=== PATIENT | male | born 1980 | race Two or more races ===

== ENCOUNTER 2016-08-06 16:20 | Inpatient (IN) | payer SELFPAY ==
[~2016-08-06] VITALS: Ht 185.4 cm; Wt 95.8 kg
[2016-08-06 16:25] VITALS: BP 201/112; PULSE 88; RESP 22; TEMP 100.1; O2SAT 97
[2016-08-06 16:30] VITALS: O2SAT 97
[2016-08-06] MEDS ORDERED: HYDROmorphone HCL PF 2 MG/ML VIAL IVS ONE (16:30)
[2016-08-06] MEDS ORDERED: SODIUM CHLOR 0.9% 1000 ML INJ 1,000 ML IV ONE (16:30)
--- NOTE | 2016-08-06 16:49 | PD ---
HPI Chief Complaint: Injury Time Seen by Provider: 16:29 Travel History International Travel<30 days: No Contact w/Intl Traveler<30days: No Traveled to known affect area: No History of Present Illness HPI Patient is a 35 year old male who presents to ER with complaints of right knee pain. Patient reports that one hour prior to arrival to ER, patient was trying to jump onto a truck with his right leg, reports that he missed the truck and his right knee hit the truck and landed onto the ground. Patient reports severe pain to his right knee. Patient's last meal was at 130pm today. Patient has hx of surgeries to the knee in the past, reports that he had the surgery in [facility] 8 years ago. Patient currently not taking any medications. PFSH Past Medical History Neurologic: Yes (Vertigo) Tetanus Vaccination: > 5 Years Influenza Vaccination: No Social History Alcohol Use: No Tobacco Use: No Substance Use: No Allergies-Medications (Allergen,Severity, Reaction): Coded Allergies: Morphine (Verified Allergy, Severe, Itching, 08/06/16) Reported Meds & Prescriptions Reported Meds & Active Scripts Active No Active Prescriptions or Reported Medications Review of Systems General / Constitutional: No: Fever Eyes: No: Visual changes HENT: No: Headaches Cardiovascular: No: Chest Pain or Discomfort Respiratory: No: Shortness of Breath Gastrointestinal: No: Abdominal Pain Genitourinary: No: Dysuria Musculoskeletal: Positive: Limited ROM (right knee pain), Pain (right knee pain ) Skin: No Rash Neurologic: No: Weakness Psychiatric: No: Depression Endocrine: No: Polydipsia Hematologic/Lymphatic: No: Easy Bruising Physical Exam Narrative GENERAL: Patient in severe distress, patient with pain to his right knee SKIN: Focused skin assessment warm/dry. HEAD: Atraumatic. Normocephalic. EYES: Pupils equal and round. No scleral icterus. No injection or drainage. ENT: No nasal bleeding or discharge. Mucous membranes pink and moist. NECK: Trachea midline. No JVD. CARDIOVASCULAR: Regular rate and rhythm. No murmur appreciated. RESPIRATORY: No accessory muscle use. Clear to auscultation. Breath sounds equal bilaterally. GASTROINTESTINAL: Abdomen soft, non-tender, nondistended. Hepatic and splenic margins not palpable. MUSCULOSKELETAL: Patient with obvious deformity to right knee, patient with swelling and edema, no signs of open fracture. Patient with no pain to right hip or right ankle. Pulses intact. Left lower extremity: normal exam. NEUROLOGICAL: Awake and alert. No obvious cranial nerve deficits. Motor grossly within normal limits. Normal speech. PSYCHIATRIC: Appropriate mood and affect; insight and judgment normal. Data Data Last Documented VS Vital Signs Date Time Temp Pulse Resp B/P Pulse Ox O2 Delivery O2 Flow Rate FiO2 08/06/16 18:15 96 18 169/84 98 Room Air 08/06/16 16:25 100.1 Orders Iv Access Insert/Monitor (08/06/16 16:29) Ecg Monitoring (08/06/16 16:29) Oximetry (08/06/16 16:29) Sodium Chlor 0.9% 1000 Ml Inj (Ns 1000 M (08/06/16 16:30) Hydromorphone Pf Inj (Dilaudid Pf Inj) (08/06/16 16:30) Femur (Ap & Lat/2vws) (08/06/16 ) Tibia/Fibula (Ap/Lat) (08/06/16 ) Knee, Ltd (1 Or 2vws) (08/06/16 ) Propofol 200 Mg/20 Ml Inj (Diprivan 200 (08/06/16 17:00) Basic Metabolic Panel (Bmp) (08/06/16 16:54) Complete Blood Count With Diff (08/06/16 16:54) Prothrombin Time / Inr (Pt) (08/06/16 16:54) Act Partial Throm Time (Ptt) (08/06/16 16:54) Knee, Ltd (1 Or 2vws) (08/06/16 ) Morphine Inj (Morphine Inj) (08/06/16 17:30) Chest, Single Ap (08/06/16 17:25) Ketorolac Inj (Toradol Inj) (08/06/16 17:30) Pelvis, Ap Only (Routine) (08/06/16 ) Splint Or Brace Apply/Monitor (08/06/16 17:30) Diphenhydramine Inj (Benadryl Inj) (08/06/16 18:15) Ondansetron Inj (Zofran Inj) (08/06/16 18:15) Admit Order (Ed Use Only) (08/06/16 18:20) Consult Orthopedic (08/06/16 ) Labs Laboratory Tests Test 08/06/16 16:20 White Blood Count 14.8 TH/MM3 Red Blood Count 5.37 MIL/MM3 Hemoglobin 14.7 GM/DL Hematocrit 44.1 % Mean Corpuscular Volume 82.2 FL Mean Corpuscular Hemoglobin 27.4 PG Mean Corpuscular Hemoglobin 33.3 % Concent Red Cell Distribution Width 12.5 % Platelet Count 316 TH/MM3 Mean Platelet Volume 9.2 FL Neutrophils (%) (Auto) 60.3 % Lymphocytes (%) (Auto) 29.4 % Monocytes (%) (Auto) 6.9 % Eosinophils (%) (Auto) 2.5 % Basophils (%) (Auto) 0.9 % Neutrophils # (Auto) 9.0 TH/MM3 Lymphocytes # (Auto) 4.3 TH/MM3 Monocytes # (Auto) 1.0 TH/MM3 Eosinophils # (Auto) 0.4 TH/MM3 Basophils # (Auto) 0.1 TH/MM3 CBC Comment DIFF FINAL Differential Comment Prothrombin Time 10.7 SEC Prothromb Time International 1.0 RATIO Ratio Activated Partial 22.9 SEC Thromboplast Time Sodium Level 142 MEQ/L Potassium Level 4.0 MEQ/L Chloride Level 106 MEQ/L Carbon Dioxide Level 23.9 MEQ/L Anion Gap 12 MEQ/L Blood Urea Nitrogen 14 MG/DL Creatinine 1.70 MG/DL Estimat Glomerular Filtration 46 ML/MIN Rate Random Glucose 111 MG/DL Calcium Level 8.8 MG/DL [facility] Medical Decision Making Medical Screen Exam Complete: Yes Emergency Medical Condition: Yes Interpretation(s) Vital Signs Date Time Temp Pulse Resp B/P Pulse Ox O2 Delivery O2 Flow Rate FiO2 08/06/16 17:05 20 08/06/16 16:30 97 Room Air 08/06/16 16:25 100.1 88 22 201/112 97 Differential Diagnosis right knee fracture, right tib/fib fx, patella fx/dislocation, femur fx Narrative Course Patient is a 35-year-old male presents to emergency room Procedures Procedure Narrative Right sided Distal Femur Fx Reduction: Verbal as well as written consent obtained using auto repair technicianslag expander line After patient was sedated, Manual traction with countertraction was used to restore the appropriate length and rotation of the femur. Patient did have pulses before and after procedure. Post reduction films ordered - patient with good reduction. Physician Communication Physician Communication case reviewed with dr. vasquez who accepts pt to service case reviewed with dr. velez who will see patient in consult Diagnosis Primary Impression: Femoral distal fracture Qualified Code: S72.491A - Other closed fracture of distal end of right femur , initial encounter Admitting Information Admitting Physician Requests: Admit Scripts No Active Prescriptions or Reported Meds Desire Da Silva DO Aug 06, 2016 16:49
[2016-08-06] MEDS ORDERED: PROPOFOL 200 MG/20 ML AMP IV ONE (17:00)
--- NOTE | 2016-08-06 17:04 | RADHPO ---
EXAM DATE/TIME: 08/06/2016 16:31 [facility] COMPARISON: No previous studies available for comparison. INDICATIONS : Right knee pain after fall. MEDICAL HISTORY : None. SURGICAL HISTORY : None. ENCOUNTER: Initial ACUITY: 1 day PAIN SCORE: 10/10 LOCATION: Right proximal knee FINDINGS: Limited AP and lateral views of the right knee were obtained and demonstrate a mildly comminuted frac ture deformity of the distal femur as above the level of the condyles. The distal fracture fragment i s displaced one shaft width posteriorly with mild overriding. There is soft tissue swelling. There ar e remote post surgical changes in the proximal tibia. Patella is intact. There is evidence of a joint effusion. CONCLUSION: Distal femur fracture. Terence Laura MD on August 06, 2016 at 16:59 Board Certified Radiologist. This report was verified electronically.
[2016-08-06 17:06] LABS: BASOPHIL # 0.1 TH/MM3 (0-0.2); BASOPHIL % 0.9 % (0.0-2.0); EOSINOPHIL # 0.4 TH/MM3 (0-0.4); EOSINOPHIL % 2.5 % (0.0-4.0); HEMATOCRIT 44.1 % (39.0-51.0); HEMO FLAGS DIFF FINAL; LYMPH % 29.4 % (9.0-44.0); LYMPHOCYTE # 4.3 TH/MM3 (1.0-4.8); MEAN CELL VOLUME 82.2 FL (80.0-100.0); MEAN CORPUSCULAR HEMOGLOBIN 27.4 PG (27.0-34.0); MEAN CORPUSCULAR HGB CONC 33.3 % (32.0-36.0); MONO % 6.9 % (0.0-8.0); NEUT % 60.3 % (16.0-70.0); PLATELET COUNT 316 TH/MM3 (150-450); RED BLOOD COUNT 5.37 MIL/MM3 (4.50-5.90); RED CELL DISTRIBUTION WIDTH 12.5 % (11.6-17.2); WHITE BLOOD COUNT 14.8 TH/MM3 (4.0-11.0)
[2016-08-06 17:17] LABS: BICARBONATE 23.9 MEQ/L (21.0-32.0)
[2016-08-06 17:18] LABS: APTT (PATIENT) 22.9 SEC (24.3-30.1); PROTHROMBIN TIME - PATIENT 10.7 SEC (9.8-11.6)
[2016-08-06 17:30] VITALS: O2SAT 99
[2016-08-06] MEDS ORDERED: MORPHINE SULFATE 4 MG/ML INJ IV PUSH ONE (17:30)
[2016-08-06] MEDS ORDERED: KETOROLAC TROMETHAMINE 30 MG/ML (IVP) VIAL IVP ONE (17:30)
--- NOTE | 2016-08-06 18:01 | PD ---
Data Data Last Documented VS Vital Signs Date Time Temp Pulse Resp B/P Pulse Ox O2 Delivery O2 Flow Rate FiO2 08/06/16 17:05 20 08/06/16 16:30 97 Room Air 08/06/16 16:25 100.1 88 201/112 Orders Iv Access Insert/Monitor (08/06/16 16:29) Ecg Monitoring (08/06/16 16:29) Oximetry (08/06/16 16:29) Sodium Chlor 0.9% 1000 Ml Inj (Ns 1000 M (08/06/16 16:30) Hydromorphone Pf Inj (Dilaudid Pf Inj) (08/06/16 16:30) Femur (Ap & Lat/2vws) (08/06/16 ) Tibia/Fibula (Ap/Lat) (08/06/16 ) Knee, Ltd (1 Or 2vws) (08/06/16 ) Propofol 200 Mg/20 Ml Inj (Diprivan 200 (08/06/16 17:00) Basic Metabolic Panel (Bmp) (08/06/16 16:54) Complete Blood Count With Diff (08/06/16 16:54) Prothrombin Time / Inr (Pt) (08/06/16 16:54) Act Partial Throm Time (Ptt) (08/06/16 16:54) Knee, Ltd (1 Or 2vws) (08/06/16 ) Morphine Inj (Morphine Inj) (08/06/16 17:30) Chest, Single Ap (08/06/16 17:25) Ketorolac Inj (Toradol Inj) (08/06/16 17:30) Pelvis, Ap Only (Routine) (08/06/16 ) Splint Or Brace Apply/Monitor (08/06/16 17:30) Labs Laboratory Tests Test 08/06/16 16:20 White Blood Count 14.8 TH/MM3 Red Blood Count 5.37 MIL/MM3 Hemoglobin 14.7 GM/DL Hematocrit 44.1 % Mean Corpuscular Volume 82.2 FL Mean Corpuscular Hemoglobin 27.4 PG Mean Corpuscular Hemoglobin 33.3 % Concent Red Cell Distribution Width 12.5 % Platelet Count 316 TH/MM3 Mean Platelet Volume 9.2 FL Neutrophils (%) (Auto) 60.3 % Lymphocytes (%) (Auto) 29.4 % Monocytes (%) (Auto) 6.9 % Eosinophils (%) (Auto) 2.5 % Basophils (%) (Auto) 0.9 % Neutrophils # (Auto) 9.0 TH/MM3 Lymphocytes # (Auto) 4.3 TH/MM3 Monocytes # (Auto) 1.0 TH/MM3 Eosinophils # (Auto) 0.4 TH/MM3 Basophils # (Auto) 0.1 TH/MM3 CBC Comment DIFF FINAL Differential Comment Prothrombin Time 10.7 SEC Prothromb Time International 1.0 RATIO Ratio Activated Partial 22.9 SEC Thromboplast Time Sodium Level 142 MEQ/L Potassium Level 4.0 MEQ/L Chloride Level 106 MEQ/L Carbon Dioxide Level 23.9 MEQ/L Anion Gap 12 MEQ/L Blood Urea Nitrogen 14 MG/DL Creatinine 1.70 MG/DL Estimat Glomerular Filtration 46 ML/MIN Rate Random Glucose 111 MG/DL Calcium Level 8.8 MG/DL MDM Supervised Visit with JULEE: No Narrative Course I was asked by Dr. Da Silva to perform procedural sedation for the patient for reduction of a right distal femur fracture. The patient underwent informed consent by both me and Dr. Da Silva through color drum worker service prior to signing informed consent. All risks benefits competitions and alternatives including hypertension apnea need for intubation were discussed with the patient. He did agree to the risks and signed a written consent. Patient has Mallampati 2 and ASA 1. Procedures Procedure Narrative After the risks and benefits were discussed the following procedure was performed: MODERATE SEDATION: The patient was placed on a ekg monitor and pulse oximetry. An ambu bag and suction was immediately available at bedside. The patient was monitored by the nurse and respiratory therapy. Oxygen saturation, heart rate and blood pressure were monitored as well as waveform capnography. Procedural sedation was acheived using 120 mg of propofol given in two separate boluses and 80 mg followed by 40 mg. 2 additional boluses of 40 mg each were given while the patient The patient was observed until awake and alert. Procedural Sedation time in attendance was 20 minutes. Total propofol given was 200 mg. Patient suffered no untoward event no apnea and no hypotension. He was alert and awake and communicating with me through my broken Arabic. Diagnosis Primary Impression: Femur fracture, right Scripts No Active Prescriptions or Reported Meds Scottie León MD Aug 06, 2016 18:01
--- NOTE | 2016-08-06 18:03 | RADHPO ---
EXAM DATE/TIME: 08/06/2016 17:31 [facility] COMPARISON: No previous studies available for comparison. INDICATIONS : Short of breath after fall. MEDICAL HISTORY : None. SURGICAL HISTORY : None. ENCOUNTER: Initial ACUITY: 1 day PAIN SCORE: 0/10 LOCATION: Bilateral chest FINDINGS: A single view of the chest demonstrates the lungs to be symmetrically aerated without evidence of mas s, infiltrate or effusion. Study is Midinspiratory with crowding of the lung vasculature. There are o verlying electrocardiogram leads. The cardiomediastinal contours are unremarkable. Osseous structure s are intact. CONCLUSION: Midinspiratory study with no acute cardiopulmonary disease. Terence Laura MD on August 06, 2016 at 18:00 Board Certified Radiologist. This report was verified electronically.
--- NOTE | 2016-08-06 18:13 | RADHPO ---
EXAM DATE/TIME: 08/06/2016 17:36 [facility] COMPARISON: No previous studies available for comparison. INDICATIONS : Pelvic pain post fall. MEDICAL HISTORY : None. SURGICAL HISTORY : None. ENCOUNTER: Initial ACUITY: 1 day PAIN SCORE: 5/10 LOCATION: Bilateral pelvis FINDINGS: A single frontal view of the pelvis demonstrates no evidence of fracture. The bony pelvic ring is in tact. Bony mineralization is normal. The soft tissues are intact. CONCLUSION: Intact pelvis. Rupert Triplett MD on August 06, 2016 at 18:11 Board Certified Radiologist. This report was verified electronically.
--- NOTE | 2016-08-06 18:13 | RADHPO ---
EXAM DATE/TIME: 08/06/2016 17:36 [facility] COMPARISON: KNEE RIGHT LTD (1 OR 2 VWS), August 06, 2016, 16:31. INDICATIONS : Right knee, post reduction. MEDICAL HISTORY : None. SURGICAL HISTORY : Prior surgery to right tibia. ENCOUNTER: Subsequent ACUITY: 1 day PAIN SCORE: 10/10 LOCATION: Right proximal knee FINDINGS: Comminuted fracture of the distal right femur again noted status post closed reduction. Alignment is near-anatomic that the fracture is extremely comminuted and mainly transverse to the metaphysis. Ther e is an oblique sagittal component that extends into the roof of the notch, bisecting the condyles. Old fracture of the lateral tibial plateau with marked chronic appearing subchondral irregularity aga in noted. CONCLUSION: Acute distal femur fracture as above, near-anatomic alignment but extremely comminuted. There is evid ence of intra-articular involvement. Proximal tibia findings are chronic. Rupert Triplett MD on August 06, 2016 at 18:09 Board Certified Radiologist. This report was verified electronically.
[2016-08-06 18:15] VITALS: BP 169/84; PULSE 96; RESP 18; O2SAT 98
[2016-08-06] MEDS ORDERED: diphenhydrAMINE HCL 50 MG/ML VIAL IV PUSH ONE (18:15)
[2016-08-06] MEDS ORDERED: ONDANSETRON HCL 4 MG/2 ML VIAL IV PUSH ONE (18:15)
--- NOTE | 2016-08-06 18:20 | RADHPO ---
EXAM DATE/TIME: 08/06/2016 17:37 [facility] COMPARISON: KNEE RIGHT LTD (1 OR 2 VWS), August 06, 2016, 17:36. INDICATIONS : Right femur pain post fall. MEDICAL HISTORY : None. SURGICAL HISTORY : Prior surgery to right tibia. ENCOUNTER: Initial ACUITY: 1 day PAIN SCORE: 10/10 LOCATION: Right distal femur FINDINGS: There is a comminuted fracture of the distal right femur and please refer to the right knee x-ray rep ort. The rest of the right femur is intact and has normal morphology. CONCLUSION: Comminuted intra-articular fracture of the distal right femur in near-anatomic alignment. Please refe r to the right knee x-ray report. The rest of the right femur is normal. Rupert Triplett MD on August 06, 2016 at 18:18 Board Certified Radiologist. This report was verified electronically.
--- NOTE | 2016-08-06 18:23 | RADHPO ---
EXAM DATE/TIME: 08/06/2016 17:42 [facility] COMPARISON: No previous studies available for comparison. INDICATIONS : Right lower leg pain post fall. MEDICAL HISTORY : None. SURGICAL HISTORY : None. ENCOUNTER: Initial ACUITY: 1 day PAIN SCORE: 10/10 LOCATION: Right proximal lower leg FINDINGS: No acute fracture is seen in the right tibia or fibula. Tibia has been pulled fracture of the lateral tibial plateau status post screw fixation. There is considerable irregularity of the subchondral morgan te at the knee. CONCLUSION: No acute fracture of the right leg. Deformity of the lateral tibial plateau does not appear acute. Rupert Triplett MD on August 06, 2016 at 18:20 Board Certified Radiologist. This report was verified electronically.
[2016-08-06] MEDS ORDERED: MAGNESIUM HYDROXIDE SUSP 30 ML CUP PO PRN (18:30)
[2016-08-06] MEDS ORDERED: HYDROmorphone HCL PF 1 MG/ML VIAL IV PUSH PRN (18:30)
[2016-08-06] MEDS ORDERED: NALOXONE HCL 0.4 MG/ML AMP IV PRN (18:30)
[2016-08-06] MEDS ORDERED: SODIUM CHLORIDE 0.9% FLUSH 10 ML FLUSH IV FLUSH PRN (18:30)
[2016-08-06] MEDS ORDERED: ACETAMINOPHEN 325 MG TAB PO PRN (18:30)
[2016-08-06 19:00] VITALS: BP 171/77; PULSE 102; RESP 18; O2SAT 97
[2016-08-06] MEDS: SODIUM CHLOR 0.9% 1000 ML INJ 1,000 ML IV SCH (19:19)
[2016-08-06] MEDS ORDERED: SODIUM CHLORIDE 0.9% FLUSH 10 ML FLUSH IV FLUSH SCH (21:00)
[2016-08-06 21:16] VITALS: BP 180/102; PULSE 94; RESP 19; TEMP 99.2; O2SAT 98
[2016-08-07] MEDS: ACETAMINOPHEN/HYDROcodone 325 MG/7.5 MG TAB PO PRN ×2 (00:06→05:58)
[2016-08-07 00:31] VITALS: BP 178/93; PULSE 93; RESP 20; TEMP 98.6; O2SAT 98
[2016-08-07] MEDS ORDERED: POVIDONE IODINE 5% (ANTISEPSIS KIT) 4 APPLICATIONS EACH NARE PRN (02:45)
[2016-08-07] MEDS ORDERED: LACTATED RINGER'S 1000 ML IV PRN (02:45)
[2016-08-07] MEDS ORDERED: METOPROLOL TARTRATE 25 MG TAB PO PRN (02:45)
[2016-08-07] MEDS ORDERED: CHLORHEXIDINE GLUCONATE 2 % 1 PACK (2 CLOTHS) TOPICAL PRN (02:45)
[2016-08-07] MEDS ORDERED: INSULIN HUMAN REGULAR 1,000 UNITS/10 ML VIAL SQ PRN (02:45)
[2016-08-07] MEDS ORDERED: SODIUM CHLORID 0.9% 500 ML IV PRN (02:45)
[2016-08-07 02:56] LABS: AUTOMATED NEUTROPHIL # 7.5 TH/MM3 (1.8-7.7); BASOPHIL % 0.4 % (0.0-2.0); EOSINOPHIL # 0.5 TH/MM3 (0-0.4); EOSINOPHIL % 4.1 % (0.0-4.0); HEMATOCRIT 39.3 % (39.0-51.0); HEMO FLAGS DIFF FINAL; LYMPH % 21.4 % (9.0-44.0); LYMPHOCYTE # 2.5 TH/MM3 (1.0-4.8); MEAN CELL VOLUME 82.6 FL (80.0-100.0); MEAN CORPUSCULAR HEMOGLOBIN 27.4 PG (27.0-34.0); MEAN CORPUSCULAR HGB CONC 33.1 % (32.0-36.0); MONO % 9.2 % (0.0-8.0); NEUT % 64.9 % (16.0-70.0); PLATELET COUNT 238 TH/MM3 (150-450); RED BLOOD COUNT 4.76 MIL/MM3 (4.50-5.90); RED CELL DISTRIBUTION WIDTH 13.7 % (11.6-17.2); WHITE BLOOD COUNT 11.5 TH/MM3 (4.0-11.0)
[2016-08-07 03:21] LABS: BICARBONATE 27.1 MEQ/L (21.0-32.0); POTASSIUM 3.2 MEQ/L (3.5-5.1)
[2016-08-07 04:50] VITALS: BP 167/84; PULSE 72; RESP 20; TEMP 98.1; O2SAT 98
[2016-08-07] MEDS: SODIUM CHLOR 0.9% 1000 ML INJ 1,000 ML IV SCH ×3 (04:50→20:31)
--- NOTE | 2016-08-07 07:52 | HHI.HP ---
[facility] Service [facility] ([place], [place])ists Primary Care Physician No Primary Care Physician Admission Diagnosis distal femur fracture Diagnoses: (1) Femoral distal fracture Diagnosis: Principal Chief Complaint: pain to the right knee Travel History International Travel<30 Days: No Contact w/Intl Traveler <30 Da: No Traveled to Known Affected Are: No History of Present Illness patient is a 35 y/o male with no significant past medical history who presented to ER with right knee pain after he fell earlier. he says that he tried to jump on a truck when he missed and landed on the ground after which he started to have pain to the right knee. he denies any other symptoms including chest pain, sob,abdominal pain. Review of Systems Constitutional: DENIES: Fever, Weight loss, Chills, Night Sweats Eyes: DENIES: Blurred vision, Diplopia, Vision loss, Double Vision Ears, nose, mouth, throat: DENIES: Tinnitus, Vertigo, Throat pain, Epistaxis Respiratory: DENIES: Apneas, Cough, Snoring, Wheezing, Hemoptysis, Sputum production, Shortness of breath Cardiovascular: DENIES: Chest pain, Palpitations, Syncope, Dyspnea on Exertion , PND, Lower Extremity Edema, Orthopnea, Claudication Gastrointestinal: DENIES: Abdominal pain, Black stools, Bloody stools, Constipation, Diarrhea, Nausea, Vomiting, Difficulty Swallowing, Anorexia Genitourinary: DENIES: Urinary frequency, Urgency, Hematuria, Dysuria Musculoskeletal: COMPLAINS OF: Joint pain (right knee), DENIES: Muscle aches, Stiffness, Joint Swelling Integumentary: DENIES: Rash Neurologic: DENIES: Abnormal gait, Headache, Localized weakness, Paresthesias, Seizures, Speech Problems, Tremor, Poor Balance Psychiatric: DENIES: Anxiety, Confusion, Mood changes, Depression, Hallucinations, Agitation, Suicidal Ideation, Homicidal Ideation, Delusions Past Family Social History Past Medical History not significant. Past Surgical History right leg surgery. Reported Medications none reported. Allergies: Coded Allergies: Morphine (Verified Allergy, Severe, Itching, 08/06/16) Active Ordered Medications Current Medications Sodium Chloride (NS 1000 ml Inj) 1,000 ml @ 999 mls/hr BOLUS ONCE IV Last administered on 08/06/16 16:35; Start 08/06/16 at 16:30; Stop 08/06/16 at 17:30 ; Status DC Hydromorphone HCl (Dilaudid Pf Inj) 1 mg ONCE ONCE IVS Last administered on 16:35; Start 08/06/16 at 16:30; Stop 08/06/16 at 16:31; Status DC Propofol (Diprivan 200 Mg/20 ml Inj) 200 mg ONCE ONCE IV Last administered on 08/06/16 17:00; Start 08/06/16 at 17:00; Stop 08/06/16 at 17:01; Status DC Morphine Sulfate (Morphine Inj) 4 mg ONCE ONCE IV PUSH Last administered on 17:58; Start 08/06/16 at 17:30; Stop 08/06/16 at 17:31; Status DC Ketorolac Tromethamine (Toradol Inj) 30 mg ONCE ONCE IVP Last administered on 08/06/16 17:58; Start 08/06/16 at 17:30; Stop 08/06/16 at 17:31; Status DC Diphenhydramine HCl (Benadryl Inj) 25 mg ONCE ONCE IV PUSH Last administered on 08/06/16 18:12; Start 08/06/16 at 18:15; Stop 08/06/16 at 18:16; Status DC Ondansetron HCl 4 mg 4 mg ONCE ONCE IV PUSH Last administered on 08/06/16 18: 12; Start 08/06/16 at 18:15; Stop 08/06/16 at 18:16; Status DC Sodium Chloride (NS 1000 ml Inj) 1,000 ml @ 100 mls/hr Q10H IV Last administered on 08/07/16 04:50; Start 08/06/16 at 18:21 Sodium Chloride (NS Flush) 2 ml UNSCH PRN IV FLUSH FLUSH AFTER USING IV ACCESS ; Start 08/06/16 at 18:30 Sodium Chloride (NS Flush) 2 ml BID IV FLUSH ; Start 08/06/16 at 21:00 Acetaminophen (Tylenol) 650 mg Q4H PRN PO Headache, fever, pain 1-4; Start at 18:30 Ondansetron HCl (Zofran Inj) 4 mg Q6H PRN IVP NAUSEA OR VOMITING; Start at 18:30 Magnesium Hydroxide (Milk Of Magnesia Liq) 30 ml Q12H PRN PO CONSTIPATION; Start 08/06/16 at 18:30 Naloxone HCl (Narcan Inj) 0.4 mg UNSCH PRN IV SEE LABEL COMMENTS; Start at 18:30 Acetaminophen/ Hydrocodone Bitart ([place] 7.5-325 Mg) 1 tab Q6H PRN PO PAIN SCALE 5 TO 10 Last administered on 08/07/16 05:58; Start 08/06/16 at 18:30 Hydromorphone HCl 1 mg 1 mg Q4H PRN IV PUSH BREAKTHROUGH PAIN Last administered on 08/06/16 21:25; Start 08/06/16 at 18:30 Lactated Ringer's 1,000 ml @ 30 mls/hr Q24H PRN IV SEE LABEL COMMENTS; Start at 02:45; Stop 08/10/16 at 02:44 Sodium Chloride (NS 500 ml Inj) 500 ml @ 30 mls/hr [id number] PRN IV SEE LABEL COMMENTS; Start 08/07/16 at 02:45; Stop 08/10/16 at 02:44 Metoprolol Tartrate (Lopressor) 25 mg AURICULAR DETOXIFICATION SPECIALIST PRN PO SEE LABEL COMMENTS; Start 08/07/16 at 02:45; Stop 08/10/16 at 02:44 Povidone Iodine (Betadine 5% Antisepsis Kit) 1 applic AURICULAR DETOXIFICATION SPECIALIST PRN EACH NARE SEE LABEL COMMENTS; Start 08/07/16 at 02:45; Stop 08/10/16 at 02:44 Chlorhexidine Gluconate (Chlorhexidine 2% Cloth) 3 pack AURICULAR DETOXIFICATION SPECIALIST PRN TOPICAL SEE LABEL COMMENTS; Start 08/07/16 at 02:45; Stop 08/10/16 at 02:44 Insulin Human Regular (NovoLIN R INJ) See Protocol Table ... AURICULAR DETOXIFICATION SPECIALIST PRN SQ SEE PROTOCOL TABLE; Start 08/07/16 at 02:45; Stop 08/10/16 at 02:44 Social History no smoking or drinking. Physical Exam Vital Signs Vital Signs Date Time Temp Pulse Resp B/P Pulse Ox O2 Delivery O2 Flow Rate FiO2 08/07/16 04:50 98.1 72 20 167/84 98 08/07/16 00:31 98.6 93 20 178/93 98 08/06/16 21:50 Room Air 08/06/16 21:16 99.2 94 19 180/102 98 08/06/16 19:00 102 18 171/77 97 Room Air 08/06/16 19:00 14 08/06/16 18:15 96 18 169/84 98 Room Air 08/06/16 18:05 14 08/06/16 17:05 20 08/06/16 16:30 97 Room Air 08/06/16 16:25 100.1 88 22 201/112 97 Physical Exam GENERAL: This is a well-nourished, well-developed patient, in no apparent distress. SKIN: No rashes, ecchymoses or lesions. Cool and dry. HEAD: Atraumatic. Normocephalic. No temporal or scalp tenderness. EYES: Pupils equal round and reactive. Extraocular motions intact. No scleral icterus. No injection or drainage. ENT: Nose without bleeding, purulent drainage or septal hematoma. Throat without erythema, tonsillar hypertrophy or exudate. Uvula midline. Airway patent. NECK: Trachea midline. No JVD or lymphadenopathy. Supple, nontender, no meningeal signs. CARDIOVASCULAR: Regular rate and rhythm without murmurs, gallops, or rubs. RESPIRATORY: Clear to auscultation. Breath sounds equal bilaterally. No wheezes , rales, or rhonchi. GASTROINTESTINAL: Abdomen soft, non-tender, nondistended. No hepato-splenomegaly , or palpable masses. No guarding. MUSCULOSKELETAL: right knee covered with clean dressing. NEUROLOGICAL: Awake and alert. Cranial nerves II through XII intact. Motor and sensory grossly within normal limits. Five out of 5 muscle strength in all muscle groups. Normal speech. Laboratory Laboratory Tests Test 08/06/16 08/07/16 16:20 02:41 White Blood Count 14.8 11.5 Red Blood Count 5.37 4.76 Hemoglobin 14.7 13.0 Hematocrit 44.1 39.3 Mean Corpuscular Volume 82.2 82.6 Mean Corpuscular Hemoglobin 27.4 27.4 Mean Corpuscular Hemoglobin 33.3 33.1 Concent Red Cell Distribution Width 12.5 13.7 Platelet Count 316 238 Mean Platelet Volume 9.2 8.6 Neutrophils (%) (Auto) 60.3 64.9 Lymphocytes (%) (Auto) 29.4 21.4 Monocytes (%) (Auto) 6.9 9.2 Eosinophils (%) (Auto) 2.5 4.1 Basophils (%) (Auto) 0.9 0.4 Neutrophils # (Auto) 9.0 7.5 Lymphocytes # (Auto) 4.3 2.5 Monocytes # (Auto) 1.0 1.1 Eosinophils # (Auto) 0.4 0.5 Basophils # (Auto) 0.1 0.0 CBC Comment DIFF FINAL DIFF FINAL Differential Comment Prothrombin Time 10.7 Prothromb Time International 1.0 Ratio Activated Partial 22.9 Thromboplast Time Sodium Level 142 141 Potassium Level 4.0 3.2 Chloride Level 106 104 Carbon Dioxide Level 23.9 27.1 Anion Gap 12 10 Blood Urea Nitrogen 14 15 Creatinine 1.70 1.10 Estimat Glomerular Filtration 46 75 Rate Random Glucose 111 102 Calcium Level 8.8 8.3 Blood Type O POSITIVE Antibody Screen NEGATIVE Blood Bank Comment Result Diagram: 08/07/16 0241 08/07/16 0241 Imaging Last Impressions Chest X-Ray 08/06/16 1725 Signed Impressions: Service Date/Time: Saturday, August 06, 2016 17:31 - CONCLUSION: Midinspiratory study with no acute cardiopulmonary disease. Terence Laura MD Tibia/Fibula X-Ray 08/06/16 0000 Signed Impressions: Service Date/Time: Saturday, August 06, 2016 17:42 - CONCLUSION: No acute fracture of the right leg. Deformity of the lateral tibial plateau does not appear acute. Rupert Triplett MD Pelvis X-Ray 08/06/16 0000 Signed Impressions: Service Date/Time: Saturday, August 06, 2016 17:36 - CONCLUSION: Intact pelvis. Rupert Triplett MD Knee X-Ray 08/06/16 0000 Signed Impressions: Service Date/Time: Saturday, August 06, 2016 17:36 - CONCLUSION: Acute distal femur fracture as above, near-anatomic alignment but extremely comminuted. There is evidence of intra-articular involvement. Proximal tibia findings are chronic. Rupert Triplett MD Femur X-Ray 08/06/16 0000 Signed Impressions: Service Date/Time: Saturday, August 06, 2016 17:37 - CONCLUSION: Comminuted intra-articular fracture of the distal right femur in near-anatomic alignment. Please refer to the right knee x-ray report. The rest of the right femur is normal. Rupert Triplett MD Assessment and Plan Assessment and Plan A/P - right distal femur fracture after a fall for surgical repair today- continue with pain control- management per ortho. -leukocytosis- likely reactive- will monitor -elevated BP's- likely due to the pain; vasotec prn for now- will continue to monitor. -mild hypokalemia; will replace -DVT prophylaxis- post-op; per ortho. Discussed Condition With the patient and RN. Physician Certification 2 Midnight Certification Type: Admission for Inpatient Services Order for Inpatient Services The services are ordered in accordance with Medicare regulations or non- Medicare payer requirements, as applicable. In the case of services not specified as inpatient-only, they are appropriately provided as inpatient services in accordance with the 2-midnight benchmark. Estimated LOS (days): 2 days is the estimated time the patient will need to remain in the hospital, assuming treatment plan goals are met and no additional complications. Post-Hospital Plan: Home Problem Qualifiers (1) Femoral distal fracture: Qualified Code: S72.491A - Other closed fracture of distal end of right femur, initial encounter Jonathon Washburn MD Aug 07, 2016 07:52
[2016-08-07] MEDS ORDERED: ENALAPRILAT 1.25 MG/ML VIAL IV PUSH PRN (08:00)
[2016-08-07] MEDS ORDERED: ceFAZolin 2 GM PREMIX 50 ML ONE (08:23)
[2016-08-07] MEDS ORDERED: VANCOMYCIN HCL 1000 MG VIAL ONE (08:23)
[2016-08-07] MEDS ORDERED: GENTAMICIN SULFATE 80 MG/2 ML VIAL ONE (08:28)
[2016-08-07] MEDS ORDERED: WALKER/ADULT/FO1 MIS (09:29)
[2016-08-07] MEDS ORDERED: HYDR-3366 PO (09:29)
[2016-08-07] MEDS ORDERED: XARE10TA PO (09:32)
[2016-08-07] MEDS ORDERED: SODIUM CHLORIDE 0.9% IV SCH (10:00)
[2016-08-07] MEDS ORDERED: TRANEXAMIC ACID IV SCH (10:00)
[2016-08-07] MEDS ORDERED: MISCELLANEOUS PHARMACY INFORMATION XX ONE (10:15)
[2016-08-07] MEDS ORDERED: MISCELLANEOUS NURSING INFORMATION XX PRN (10:15)
[2016-08-07] MEDS ORDERED: NALOXONE HCL 0.4 MG/ML AMP IV PRN (10:15)
[2016-08-07] MEDS ORDERED: SODIUM CHLORIDE 0.9% FLUSH 5 ML FLUSH IVF PRN (10:15)
--- NOTE | 2016-08-07 10:15 | PD.OP ---
cc: Alex Yousif MD Operative Report Date of Surgery: Aug 07, 2016 Preoperative Diagnosis: Displaced right distal femur intra-articular fracture Postoperative Diagnosis: Procedure: Open reduction and fixation right distal femur intra-articular fracture Anesthesia: Gen. Surgeon: Alex Yousif Testing Shaking Shipping(s): KATARINA Estrada PA-C The surgical procedure was assisted by my physician architectural administrative assistant. My P.A. presence was necessary throughout this case for the manipulation and positioning of the surgical extremity. My P.A. was assisting me throughout the duration of this procedure. The skill set of a physician architectural administrative assistant was medically necessary to complete this procedure. During the surgical case the surgical assistant certified was working at the back table and the physician architectural administrative assistant was directly assisting me. Operation and Findings: Patient was seen and evaluated preoperatively. An cut off man was used during the examination of this patient. Informed consent was obtained after detailed discussion of the risks and benefits of surgery with the aid of an cut off man. Operative site was marked. Patient was brought to the OR, placed on OR table, and given IV sedation with GETA. IV antibiotics were administered and timeout procedure was performed. The operative leg was prepped with alcohol, followed with Hibiclens, draped in usual sterile fashion. A timeout procedure was performed. The procedure began with a 5-inch incision over the lateral aspect of the distal femur. Subcutaneous tissue was dissected with Bovie. Iliotibial band was split in line with fibers. At this point the fracture was visualized. Traction was applied. Fracture was manipulated. The fracture reduced into excellent alignment. The articular surface was split between the condyles. Articular surface was reduced into anatomic alignment. Steinmann pins were used to hold provisional fixation. At this point attention was turned to plate placement. A lateral condylar plate was selected and attached to the insertion handle jig. The plate was placed underneath the vastus lateralis. Steinmann pins were used to hold the plate to bone. Multiplanar fluoroscopy confirmed appropriate placement of plate. Multiple 4.5 cortical screws were now placed in percutaneous fashion through the plate. The plate was compressed to bone. Multiple locking screws were now placed in the distal segment of the distal femur. Additional screws were placed into the femoral shaft. All screws were predrilled and premeasured for appropriate length. Final fluoroscopy revealed excellent alignment of fracture with well-placed hardware. Wound was thoroughly irrigated. Fascia was closed with #1 Vicryl. Subcutaneous tissue was closed with 3-0 Vicryl. Skin was closed with haris. Sterile dressings were applied. The patient was placed into a knee immobilizer and transferred to recovery in stable condition. Needle and sponge counts were correct. Alex Yousif MD Aug 07, 2016 10:15
[2016-08-07] MEDS ORDERED: Post-op Orders (for Pharmacy) MISC XX ONE (10:30)
[2016-08-07] MEDS ORDERED: DO NOT ADM ANY ANTICOAGULANT DRUGS PRN (10:30)
[2016-08-07] MEDS ORDERED: fentaNYL CITRATE 250 MCG/5 ML AMP ONE (10:38)
[2016-08-07] MEDS ORDERED: MIDAZOLAM HCL 2 MG/2 ML VIAL ONE (10:39)
[2016-08-07] MEDS ORDERED: *HYDROmorphone PF 1 MG VIAL PERIprocedural Use ONLY ONE (10:54)
[2016-08-07] MEDS: LACTATED RINGER'S 1000 ML INJ 1,000 ML IV SCH ×2 (11:10→20:08)
[2016-08-07 11:30] VITALS: BP 170/93; PULSE 65; RESP 16; TEMP 97; O2SAT 98
[2016-08-07] MEDS: HYDROmorphone HCL PF 1 MG/ML VIAL IV PUSH PRN ×2 (11:41→20:09)
[2016-08-07] MEDS ORDERED: PROPOFOL 200 MG/20 ML AMP IV ONE (12:00)
[2016-08-07] MEDS ORDERED: LACTATED RINGER'S 1000 ML INJ 1,000 ML IV ONE (12:00)
[2016-08-07] MEDS ORDERED: ONDANSETRON HCL 4 MG/2 ML VIAL IV PUSH ONE (12:00)
[2016-08-07] MEDS ORDERED: NEOSTIGMINE 3 MG/3 ML SYR IV ONE (12:00)
[2016-08-07] MEDS: ONDANSETRON HCL 4 MG/2 ML VIAL IVP PRN ×2 (12:58→20:08)
[2016-08-07] MEDS: ACETAMINOPHEN/HYDROcodone 325 MG/10 MG TAB PO PRN ×2 (12:59→17:27)
[2016-08-07] MEDS: CALCIUM/VITAMIN D 250 MG/125 U TAB PO SCH ×2 (13:00→17:27)
--- NOTE | 2016-08-07 13:23 | MB ---
cc: NATHAN MARIE DATE OF CONSULTATION: 08/07/2016 REASON FOR CONSULTATION Right distal femur supracondylar fracture. CONSULTING PHYSICIAN Dr. Washburn. HISTORY OF PRESENT ILLNESS Nic is a 35-year-old male who is [place]-speaking. History and examination were assisted with the aid of an healthcare interpreter. The patient states that he fell. He landed on his right knee. He had immediate right knee pain. He was unable to stand or ambulate. He denies any dizziness, syncope or loss of consciousness. Pain is worse with movement and is improved with rest. He presented to the emergency room where x-rays revealed a displaced right distal femur fracture. He has a history of previous right proximal tibia fracture. PAST MEDICAL HISTORY ILLNESSES None. SURGERIES Right tibia ORIF. MEDICATIONS None. ALLERGIES MORPHINE. SOCIAL HISTORY The patient denies alcohol or drug abuse. FAMILY HISTORY Noncontributory. REVIEW OF SYSTEMS The patient denies headache, visual changes, neck pain, chest pain, shortness of breath, abdominal pain, nausea, vomiting or recent weight loss or numbness or tingling of extremities. He complains of right knee pain. PHYSICAL EXAMINATION GENERAL: The patient is a well-developed, well-nourished 35-year-old male who is awake and alert. He is alert and oriented x3. VITAL SIGNS: Temperature 98.1, pulse 72, respirations 20, blood pressure 167/84, O2 sat 98% on room air. HEAD: The patient is normocephalic. Pupils are equal. NECK: Soft, nontender. Trachea is midline. ABDOMEN: Soft, nontender, nondistended. EXTREMITIES: Examination of right and left upper extremities reveals no pain with shoulder, elbow or wrist motion. He has intact sensation in all fingers. Auto Motor Mechanic strength is +5. Radial pulses are palpable. Sensation is intact in all fingers. Examination of left leg reveals no significant pain with hip, knee or ankle motion. Skin is intact. Dorsalis pedis pulses palpable. Sensation is intact. Examination of right leg reveals no tenderness around his hip or ankle. He is diffusely tender around the knee. There is mild to moderate swelling around the knee. He has pain with any knee motion. Skin is otherwise intact. Dorsalis pedis pulses palpable. Sensation intact to the right foot. Calf and thigh compartments are soft. X-RAYS X-rays of the right knee were reviewed. X-rays reveal a mildly displaced intra-articular right distal femur fracture. IMPRESSION Right distal femur supracondylar fracture with intra-articular extension. PLAN Treatment options were discussed with the patient. At this point I discussed with him surgical versus nonsurgical treatment. After detailed discussion of risks and benefits of each, the patient elected to proceed with surgery. Risks of surgery include bleeding, infection, injuries to arteries, nerves and blood vessels, nonunion, malunion, painful hardware, knee arthritis, knee stiffness as well as medical complications including blood clot, stroke, heart attack and . All questions were answered. I will plan on surgery today. A mid-level provider in my office, nurse practitioner or PA, may see this patient on a follow-up basis and continue to implement the objective of this plan including: Starting or adjusting medications, injections of muscle, tendon, bursa or joints, cast application, orthotic or brace application, physical therapy, further radiographic studies including x-ray, MRI, CT, ultrasounds or bone scan, vascular studies, neurologic studies, or other specialist consultations, and proceeding with surgical management as appropriate. MD LANDY Proctor/APOLINAR /10:19 AM /1:01 PM
[2016-08-07] MEDS ORDERED: POTASSIUM CHLORIDE 10 MEQ CONTROLLED RELEASE TAB PO ONE (14:00)
--- NOTE | 2016-08-07 14:42 | RADRPT ---
EXAM DATE/TIME: 08/07/2016 10:00 [facility] COMPARISON: FEMUR RIGHT (AP & LAT/2VWS), August 06, 2016, 17:37. INDICATIONS : ORIF right distal femur. MEDICAL HISTORY : None. SURGICAL HISTORY : None. ENCOUNTER: Subsequent ACUITY: 2 days PAIN SCORE: Non-responsive. LOCATION: Right distal femur. FINDINGS: Multiple coned down views of the right femur were obtained a matrix camera demonstrate placement of a screw plate fixation device along the distal fibula transfixing the comminuted fracture deformity. F racture fragments are in near-anatomic alignment. There is overlying soft tissue prominence. CONCLUSION: Status post op in rigid internal fixation. Terence Laura MD on August 07, 2016 at 14:40 Board Certified Radiologist. This report was verified electronically.
[2016-08-07 16:00] VITALS: BP 177/97; PULSE 74; RESP 16; TEMP 98; O2SAT 100
[2016-08-07] MEDS: ceFAZolin 2 GM PREMIX 50 ML IV SCH (17:28)
[2016-08-07] MEDS ORDERED: ERGOCALCIFEROL (VIT D2) 50,000 UNIT CAP PO SCH (18:00)
[2016-08-07 20:00] VITALS: BP 181/99; PULSE 70; RESP 17; TEMP 99; O2SAT 100
[2016-08-07] MEDS: SODIUM CHLORIDE 0.9% FLUSH 5 ML FLUSH IVF SCH (20:07)
[2016-08-07] MEDS: VANCOMYCIN INJ 1,000 MG in SODIUM CHLOR 0.9% 250 ML INJ 250 ML IV SCH (20:07)
[2016-08-07 21:45] VITALS: BP 175/88
[2016-08-08] VITALS: BP 161/86; PULSE 81; RESP 16; TEMP 99.1; O2SAT 96
[2016-08-08] MEDS: ceFAZolin 2 GM PREMIX 50 ML IV SCH ×3 (00:45→17:19)
[2016-08-08 04:00] VITALS: BP 169/98; PULSE 71; RESP 16; TEMP 98.9; O2SAT 97
[2016-08-08] MEDS: HYDROmorphone HCL PF 1 MG/ML VIAL IV PUSH PRN (05:14)
[2016-08-08 06:03] LABS: HEMATOCRIT 36.5 % (39.0-51.0); REVIEW FLAG FINAL
--- NOTE | 2016-08-08 06:53 | PD.ORT.PN ---
Subjective Subjective Remarks Director Of Social Work computer. Patient is doing well Objective Vitals Vital Signs Date Time Temp Pulse Resp B/P Pulse Ox O2 Delivery O2 Flow Rate FiO2 08/08/16 04:00 98.9 71 16 169/98 97 08/08/16 00:00 99.1 81 16 161/86 96 08/07/16 21:45 175/88 08/07/16 20:00 99.0 70 17 181/99 100 08/07/16 18:56 Room Air 08/07/16 16:00 98.0 74 16 177/97 100 08/07/16 11:30 97.0 65 16 170/93 98 08/07/16 11:15 97.6 76 16 148/89 96 Room Air 08/07/16 11:00 72 16 149/88 96 Room Air 08/07/16 10:45 64 15 149/83 98 Nasal Cannula 2 08/07/16 10:30 97.8 75 16 157/87 99 Nasal Cannula 3 I/O 08/07/16 08/07/16 08/07/16 08/08/16 08/08/16 08/08/16 07:00 15:00 23:00 07:00 15:00 23:00 Intake Total 360 ml 1740 ml 1715 ml 856 ml Output Total 500 ml 1250 ml Balance -140 ml 490 ml 1715 ml 856 ml Intake Oral 360 ml 240 ml 960 ml 240 ml IV Total 100 ml 755 ml 616 ml Other 1400 ml Output Urine Total 500 ml 1100 ml Estimated Blood Loss 150 ml # Voids 3 1 # Bowel Movements 0 0 0 0 Result Diagram: 08/08/16 0511 08/07/16 0241 Imaging Last 72 hours Impressions Femur X-Ray 08/07/16 0000 Signed Impressions: Service Date/Time: July 10:00 - CONCLUSION: Status post op in rigid internal fixation. Terence Laura MD Chest X-Ray 08/06/16 1725 Signed Impressions: Service Date/Time: Saturday, August 06, 2016 17:31 - CONCLUSION: Midinspiratory study with no acute cardiopulmonary disease. Terence Laura MD Tibia/Fibula X-Ray 08/06/16 0000 Signed Impressions: Service Date/Time: Saturday, August 06, 2016 17:42 - CONCLUSION: No acute fracture of the right leg. Deformity of the lateral tibial plateau does not appear acute. Rupert Triplett MD Pelvis X-Ray 08/06/16 0000 Signed Impressions: Service Date/Time: Saturday, August 06, 2016 17:36 - CONCLUSION: Intact pelvis. Rupert Triplett MD Knee X-Ray 08/06/16 0000 Signed Impressions: Service Date/Time: Saturday, August 06, 2016 17:36 - CONCLUSION: Acute distal femur fracture as above, near-anatomic alignment but extremely comminuted. There is evidence of intra-articular involvement. Proximal tibia findings are chronic. Rupert Triplett MD Knee X-Ray 08/06/16 0000 Signed Impressions: Service Date/Time: Saturday, August 06, 2016 16:31 - CONCLUSION: Distal femur fracture. Terence Laura MD Femur X-Ray 08/06/16 0000 Signed Impressions: Service Date/Time: Saturday, August 06, 2016 17:37 - CONCLUSION: Comminuted intra-articular fracture of the distal right femur in near-anatomic alignment. Please refer to the right knee x-ray report. The rest of the right femur is normal. Rupert Triplett MD Objective Remarks Right lower extremity: Clean dry dressings intact with knee immobilizer in place. Patient help her strap is applied. Distally neurovascularly intact with strong dorsiflexion and plantar flexion of foot Assessment & Plan Assessment and Plan Right distal femur fracture status post open reduction internal fixation POD 1 Nonweightbearing right lower extremity Knee immobilizer in place at all times except for physical therapy for passive range of motion of knee. No active leglifts or quad sets Lovenox then convert to Xarelto after discharge Plan for discharge to home when safely ambulating with walker and pain controlled either this afternoon or tomorrow Follow-up with Dr. Yousif or PA in 2 weeks If availability case management for dressing changes Terence Mahmood Jr. Aug 08, 2016 06:53
--- NOTE | 2016-08-08 06:54 | HHI.FF ---
Face to Face Verification Diagnosis: (1) Femoral distal fracture Nursing Dressing Changes: Daily dressing change, Polo wrap, 4x4s, Xeroform I have seen patient Nic Barlow on 08/08/16. My clinical findings support the need for the requested home health care services because: Limited ability to care for self I certify that my clinical findings support that this patient is homebound because: Post-op weakness Terence Mahmood Jr. Aug 08, 2016 06:54
[2016-08-08 08:00] VITALS: BP 160/94; PULSE 74; RESP 19; TEMP 99.2; O2SAT 97
[2016-08-08] MEDS: CALCIUM/VITAMIN D 250 MG/125 U TAB PO SCH ×3 (08:29→17:19)
[2016-08-08] MEDS: VANCOMYCIN INJ 1,000 MG in SODIUM CHLOR 0.9% 250 ML INJ 250 ML IV SCH (08:30)
[2016-08-08] MEDS: SODIUM CHLORIDE 0.9% FLUSH 5 ML FLUSH IVF SCH (08:31)
[2016-08-08] MEDS ORDERED: ENOXAPARIN SODIUM 40 MG/0.4 ML SYRINGE SQ SCH (09:00)
[2016-08-08] MEDS ORDERED: CHOLECALCIFEROL (VIT D3) 1000 UNIT TAB PO SCH (09:00)
[2016-08-08] MEDS: SODIUM CHLOR 0.9% 1000 ML INJ 1,000 ML IV SCH (10:21)
[2016-08-08] MEDS: ACETAMINOPHEN/HYDROcodone 325 MG/10 MG TAB PO PRN (11:01)
[2016-08-08] MEDS: LACTATED RINGER'S 1000 ML INJ 1,000 ML IV SCH (11:04)
[2016-08-08 12:00] VITALS: BP 168/89; PULSE 75; RESP 20; TEMP 99.6; O2SAT 97
--- NOTE | 2016-08-08 12:41 | HHI.PR ---
Subjective Remarks resting comfortably with no distress. pain is controlled. no new complaints. d/w the RN. Objective Vitals Vital Signs Date Time Temp Pulse Resp B/P Pulse Ox O2 Delivery O2 Flow Rate FiO2 08/08/16 08:00 99.2 74 19 160/94 97 08/08/16 04:00 98.9 71 16 169/98 97 08/08/16 00:00 99.1 81 16 161/86 96 08/07/16 21:45 175/88 08/07/16 20:00 99.0 70 17 181/99 100 08/07/16 18:56 Room Air 08/07/16 16:00 98.0 74 16 177/97 100 I/O 08/07/16 08/07/16 08/07/16 08/08/16 08/08/16 08/08/16 07:00 15:00 23:00 07:00 15:00 23:00 Intake Total 360 ml 1740 ml 1715 ml 856 ml Output Total 500 ml 1250 ml Balance -140 ml 490 ml 1715 ml 856 ml Intake Oral 360 ml 240 ml 960 ml 240 ml IV Total 100 ml 755 ml 616 ml Other 1400 ml Output Urine Total 500 ml 1100 ml Estimated Blood Loss 150 ml # Voids 3 1 # Bowel Movements 0 0 0 0 Result Diagram: 08/08/16 0511 08/07/16 0241 Imaging Last Impressions Femur X-Ray 08/07/16 0000 Signed Impressions: Service Date/Time: July 10:00 - CONCLUSION: Status post op in rigid internal fixation. Terence Laura MD Chest X-Ray 08/06/16 1725 Signed Impressions: Service Date/Time: Saturday, August 06, 2016 17:31 - CONCLUSION: Midinspiratory study with no acute cardiopulmonary disease. Terence Laura MD Tibia/Fibula X-Ray 08/06/16 0000 Signed Impressions: Service Date/Time: Saturday, August 06, 2016 17:42 - CONCLUSION: No acute fracture of the right leg. Deformity of the lateral tibial plateau does not appear acute. Rupert Triplett MD Pelvis X-Ray 08/06/16 0000 Signed Impressions: Service Date/Time: Saturday, August 06, 2016 17:36 - CONCLUSION: Intact pelvis. Rupert Triplett MD Knee X-Ray 08/06/16 0000 Signed Impressions: Service Date/Time: Saturday, August 06, 2016 17:36 - CONCLUSION: Acute distal femur fracture as above, near-anatomic alignment but extremely comminuted. There is evidence of intra-articular involvement. Proximal tibia findings are chronic. Rupert Triplett MD Objective Remarks GENERAL: This is a well-nourished, well-developed patient, in no apparent distress. CARDIOVASCULAR: Regular rate and regular rhythm without murmurs, gallops, or rubs. RESPIRATORY: Clear to auscultation. Breath sounds equal bilaterally. No wheezes , rales, or rhonchi. GASTROINTESTINAL: Abdomen soft, non-tender, nondistended. Normal, active bowel sounds MUSCULOSKELETAL: right lower extremity in immobolizer NEURO: Alert & Oriented x4 to person, place, time, situation. Moves all ext x4 Procedures Open reduction and fixation right distal femur intra-articular fracture Medications and IVs Current Medications Sodium Chloride (NS 1000 ml Inj) 1,000 ml @ 999 mls/hr BOLUS ONCE IV Last administered on 08/06/16 16:35; Start 08/06/16 at 16:30; Stop 08/06/16 at 17:30 ; Status DC Hydromorphone HCl (Dilaudid Pf Inj) 1 mg ONCE ONCE IVS Last administered on 16:35; Start 08/06/16 at 16:30; Stop 08/06/16 at 16:31; Status DC Propofol (Diprivan 200 Mg/20 ml Inj) 200 mg ONCE ONCE IV Last administered on 08/06/16 17:00; Start 08/06/16 at 17:00; Stop 08/06/16 at 17:01; Status DC Morphine Sulfate (Morphine Inj) 4 mg ONCE ONCE IV PUSH Last administered on 17:58; Start 08/06/16 at 17:30; Stop 08/06/16 at 17:31; Status DC Ketorolac Tromethamine (Toradol Inj) 30 mg ONCE ONCE IVP Last administered on 08/06/16 17:58; Start 08/06/16 at 17:30; Stop 08/06/16 at 17:31; Status DC Diphenhydramine HCl (Benadryl Inj) 25 mg ONCE ONCE IV PUSH Last administered on 08/06/16 18:12; Start 08/06/16 at 18:15; Stop 08/06/16 at 18:16; Status DC Ondansetron HCl 4 mg 4 mg ONCE ONCE IV PUSH Last administered on 08/06/16 18: 12; Start 08/06/16 at 18:15; Stop 08/06/16 at 18:16; Status DC Sodium Chloride (NS 1000 ml Inj) 1,000 ml @ 100 mls/hr Q10H IV Last administered on 08/07/16 04:50; Start 08/06/16 at 18:21 Sodium Chloride (NS Flush) 2 ml UNSCH PRN IV FLUSH FLUSH AFTER USING IV ACCESS ; Start 08/06/16 at 18:30; Stop 08/07/16 at 10:24; Status DC Sodium Chloride (NS Flush) 2 ml BID IV FLUSH ; Start 08/06/16 at 21:00; Stop at 10:24; Status DC Acetaminophen (Tylenol) 650 mg Q4H PRN PO Headache, fever, pain 1-4; Start at 18:30 Ondansetron HCl (Zofran Inj) 4 mg Q6H PRN IVP NAUSEA OR VOMITING Last administered on 08/07/16 20:08; Start 08/06/16 at 18:30 Magnesium Hydroxide (Milk Of Magnesia Liq) 30 ml Q12H PRN PO CONSTIPATION; Start 08/06/16 at 18:30 Naloxone HCl (Narcan Inj) 0.4 mg UNSCH PRN IV SEE LABEL COMMENTS; Start at 18:30 Acetaminophen/ Hydrocodone Bitart ([place] 7.5-325 Mg) 1 tab Q6H PRN PO PAIN SCALE 5 TO 10 Last administered on 08/07/16 05:58; Start 08/06/16 at 18:30; Stop 08/07/16 at 10:27; Status DC Hydromorphone HCl 1 mg 1 mg Q4H PRN IV PUSH BREAKTHROUGH PAIN Last administered on 08/06/16 21:25; Start 08/06/16 at 18:30; Stop 08/07/16 at 10:28 ; Status DC Lactated Ringer's 1,000 ml @ 30 mls/hr Q24H PRN IV SEE LABEL COMMENTS; Start at 02:45; Stop 08/07/16 at 10:54; Status DC Sodium Chloride (NS 500 ml Inj) 500 ml @ 30 mls/hr [id number] PRN IV SEE LABEL COMMENTS; Start 08/07/16 at 02:45; Stop 08/07/16 at 10:54; Status DC Metoprolol Tartrate (Lopressor) 25 mg COMMERCIAL REPORTER PRN PO SEE LABEL COMMENTS; Start 08/07/16 at 02:45; Stop 08/07/16 at 10:54; Status DC Povidone Iodine (Betadine 5% Antisepsis Kit) 1 applic COMMERCIAL REPORTER PRN EACH NARE SEE LABEL COMMENTS; Start 08/07/16 at 02:45; Stop 08/07/16 at 10:54; Status DC Chlorhexidine Gluconate (Chlorhexidine 2% Cloth) 3 pack COMMERCIAL RE[employer]TER PRN TOPICAL SEE LABEL COMMENTS; Start 08/07/16 at 02:45; Stop 08/07/16 at 10:54; Status DC Insulin Human Regular (NovoLIN R INJ) See Protocol Table ... COMMERCIAL REPORTER PRN SQ SEE PROTOCOL TABLE; Start 08/07/16 at 02:45; Stop 08/07/16 at 10:54; Status DC Potassium Chloride (KCl) 30 meq ONCE ONCE PO Last administered on 08/07/16 12 :59; Start 08/07/16 at 14:00; Stop 08/07/16 at 14:01; Status DC Enalaprilat (Vasotec Inj) 1.25 mg Q8H PRN IV PUSH SBP> OR = 180, DBP> OR = 100 ; Start 08/07/16 at 08:00 Vancomycin HCl 1000 mg 1,000 mg STK-MED ONCE .ROUTE Last administered on 09:06; Start 08/07/16 at 08:23; Stop 08/07/16 at 08:24; Status DC Cefazolin Sodium/ Dextrose (Ancef 2 Gm Premix) 50 ml @ As Directed STK-MED ONCE .ROUTE Last administered on 08/07/16 09:06; Start 08/07/16 at 08:23; Stop at 08:24; Status DC Gentamicin Sulfate 240 mg 240 mg STK-MED ONCE .ROUTE Last administered on 09:21; Start 08/07/16 at 08:28; Stop 08/07/16 at 08:29; Status DC Tranexamic Acid 1351 mg/Sodium Chloride 113.51 ml @ 200 mls/ hr UNSCH IV Last administered on 08/07/16 09:53; Start 08/07/16 at 10:00; Stop 08/07/16 at 14:00 ; Status DC Lactated Ringer's (Lr 1000 ml Inj) 1,000 ml @ 80 mls/hr [id number] IV Last administered on 08/07/16 20:08; Start 08/07/16 at 10:09 IV Flush (NS Flush) 2 ml UNSCH PRN IVF FLUSH AFTER USING IV ACCESS; Start 08/07 at 10:15 IV Flush (NS Flush) 2 ml BID IVF Last administered on 08/07/16 20:07; Start at 21:00 Miscellaneous Information (Post-op Orders (for Pharmacy)) STAT ONCE XX ; Start 08/07/16 at 10:30; Stop 08/07/16 at 10:53; Status DC Enoxaparin Sodium 40 mg 40 mg Q24H SQ Last administered on 08/08/16 08:29; Start 08/08/16 at 09:00 Cefazolin Sodium/ Dextrose 50 ml @ 100 mls/hr Q8H IV Last administered on 08/08 08:31; Start 08/07/16 at 17:00; Stop 08/09/16 at 09:29 Vancomycin HCl/ Sodium Chloride (Vancomycin Inj/ NS 250 ml Inj) 250 ml @ 250 mls/hr Q12H IV Last administered on 08/08/16 08:30; Start 08/07/16 at 21:00; Stop 08/08/16 at 21:59 Miscellaneous Information UNSCH PRN XX SEE LABEL COMMENTS; Start 08/07/16 at 10:15 Miscellaneous Medication ([facility] Information) ONCE ONCE XX ; Start at 10:15; Stop 08/07/16 at 10:54; Status DC Acetaminophen/ Hydrocodone Bitart ([place] 10-325 Mg) 1 tab Q3H PRN PO PAIN 3<10 Last administered on 08/08/16 11:01; Start 08/07/16 at 10:15 Calcium/Vitamin D (Oscal-D 250-125) 250 mg TID PO Last administered on 08:29; Start 08/07/16 at 13:00 Naloxone HCl (Narcan Inj) 0.4 mg UNSCH PRN IV RESPIRATORY RATE LESS THAN 10; Start 08/07/16 at 10:15 Cholecalciferol (Vitamin D3) 1,000 units DAILY PO Last administered on 08:30; Start 08/08/16 at 09:00 Ergocalciferol (Drisdol) 50,000 units Q7D PO Last administered on 08/07/16 17: 27; Start 08/07/16 at 18:00 Hydromorphone HCl (Dilaudid Pf Inj) 1 mg Q4H PRN IV PUSH break thru pain Last administered on 08/08/16 05:14; Start 08/07/16 at 10:15 Fentanyl Citrate (fentaNYL INJ) 500 mcg STK-MED ONCE .ROUTE ; Start 08/07/16 at 10:38; Stop 08/07/16 at 10:39; Status DC Midazolam HCl (Versed Inj) 2 mg STK-MED ONCE .ROUTE ; Start 08/07/16 at 10:39; Stop 08/07/16 at 10:40; Status DC Miscellaneous Information ALL NURSING DEPARTME... UNSCH PRN .XX SEE LABEL COMMENTS; Start 08/07/16 at 10:30; Stop 08/08/16 at 10:29; Status DC Hydromorphone HCl (*DILAUDID PF INJ PERIprocedural ONLY) 1 mg STK-MED ONCE .ROUTE Last administered on 08/07/16 10:54; Start 08/07/16 at 10:54; Stop at 10:55; Status DC A/P Assessment and Plan - right distal femur fracture after a fall s/p Open reduction and fixation right distal femur intra-articular fracture. continue with pain control- ortho f/u appreciated and cleared for discharge. -leukocytosis- likely reactive- -elevated BP's- likely due to the pain; f/u as outpatient. -mild hypokalemia; replaced. -DVT prophylaxis with Xarelto. Discharge Planning dc home later today if safely ambulating with walker. f/u; pcp and ortho. see med list. d/w the patient, RN and case management. Jonathon Washburn MD Aug 08, 2016 12:41
--- NOTE | 2016-08-08 12:46 | HHI.DCPOC ---
Discharge Care Plan Diagnosis: (1) Femoral distal fracture Your Health Problems Are: Difficulty with ADL Additional Problems pain. Goals to Promote Your Health * To prevent worsening of your condition and complications * To maintain your health at the optimal level Directions to Meet Your Goals Take your medications as prescribed Follow your dietary instruction Follow activity as directed Keep your appointments as scheduled Take your immunizations and boosters as scheduled If your symptoms worsen call your PCP, if no PCP go to Urgent Care Center or Emergency Room Smoking is Dangerous to Your Health. Avoid second hand smoke Call the 24-hour hour crisis hotline for domestic abuse at Jonathon Washburn MD Aug 08, 2016 12:46
--- NOTE | 2016-08-08 12:47 | HHI.DS ---
Discharge Summary Admission Date Aug 06, 2016 at 18:23 Discharge Date: Aug 08, 2016 Admitting Diagnosis distal femur fracture (1) Femoral distal fracture ICD Code: S72.409A Diagnosis: Principal Procedures Open reduction and fixation right distal femur intra-articular fracture Brief History - From Admission patient is a 35 y/o male with no significant past medical history who presented to ER with right knee pain after he fell earlier. he says that he tried to jump on a truck when he missed and landed on the ground after which he started to have pain to the right knee. he denies any other symptoms including chest pain, sob,abdominal pain. CBC/BMP: 08/08/16 0511 08/07/16 0241 Significant Findings Laboratory Tests Test 08/06/16 08/07/16 08/08/16 16:20 02:41 05:11 White Blood Count 14.8 TH/MM3 11.5 TH/MM3 (4.0-11.0) (4.0-11.0) Neutrophils # (Auto) 9.0 TH/MM3 (1.8-7.7) Monocytes # (Auto) 1.0 TH/MM3 1.1 TH/MM3 (0-0.9) (0-0.9) Activated Partial 22.9 SEC Thromboplast Time (24.3-30.1) Creatinine 1.70 MG/DL (0.60-1.30) Estimat Glomerular Filtration 46 ML/MIN (>89) 75 ML/MIN (>89) Rate Random Glucose 111 MG/DL (74-106) Monocytes (%) (Auto) 9.2 % (0.0-8.0) Eosinophils (%) (Auto) 4.1 % (0.0-4.0) Eosinophils # (Auto) 0.5 TH/MM3 (0-0.4) Potassium Level 3.2 MEQ/L (3.5-5.1) Calcium Level 8.3 MG/DL (8.5-10.1) Hemoglobin 11.9 GM/DL (13.0-17.0) Hematocrit 36.5 % (39.0-51.0) Imaging Last Impressions Femur X-Ray 08/07/16 0000 Signed Impressions: Service Date/Time: July 10:00 - CONCLUSION: Status post op in rigid internal fixation. Terence Laura MD Chest X-Ray 08/06/16 1725 Signed Impressions: Service Date/Time: Saturday, August 06, 2016 17:31 - CONCLUSION: Midinspiratory study with no acute cardiopulmonary disease. Terence Laura MD Tibia/Fibula X-Ray 08/06/16 0000 Signed Impressions: Service Date/Time: Saturday, August 06, 2016 17:42 - CONCLUSION: No acute fracture of the right leg. Deformity of the lateral tibial plateau does not appear acute. Rupert Triplett MD Pelvis X-Ray 08/06/16 0000 Signed Impressions: Service Date/Time: Saturday, August 06, 2016 17:36 - CONCLUSION: Intact pelvis. Rupert Triplett MD Knee X-Ray 08/06/16 0000 Signed Impressions: Service Date/Time: Saturday, August 06, 2016 17:36 - CONCLUSION: Acute distal femur fracture as above, near-anatomic alignment but extremely comminuted. There is evidence of intra-articular involvement. Proximal tibia findings are chronic. Rupert Triplett MD PE at Discharge GENERAL: This is a well-nourished, well-developed patient, in no apparent distress. CARDIOVASCULAR: Regular rate and regular rhythm without murmurs, gallops, or rubs. RESPIRATORY: Clear to auscultation. Breath sounds equal bilaterally. No wheezes , rales, or rhonchi. GASTROINTESTINAL: Abdomen soft, non-tender, nondistended. Normal, active bowel sounds MUSCULOSKELETAL: right lower extremity in immobolizer NEURO: Alert & Oriented x4 to person, place, time, situation. Moves all ext x4 Hospital Course - right distal femur fracture after a fall s/p Open reduction and fixation right distal femur intra-articular fracture. continue with pain control- ortho f/u appreciated and cleared for discharge. -leukocytosis- likely reactive- -elevated BP's- likely due to the pain; f/u as outpatient. -mild hypokalemia; replaced. -DVT prophylaxis with Xarelto. Pt Condition on Discharge: Good Discharge Disposition: Discharge Home Discharge Time: <= 30 minutes Discharge Instructions DIET: Follow Instructions for: As Tolerated, No Restrictions Activities you can perform: Non Weight Bearing Activities to Avoid: Shower Follow up Referrals: Orthopedics - 08/21/16 @ [facility] with Alex Berkowitz MD PCP Follow-up New Medications: Hydrocodone-Acetaminophen ([place]) 10-325 Mg Tab 1 TAB PO Q4H PRN PAIN #60 Ref 0 TAB Rivaroxaban (Xarelto) 10 Mg Tab 10 MG PO DAILY Blood Clot Prevention #14 Ref 0 TAB Walker/Adult/Folding (Walker/Adult/Folding) 1 Mis Mis 1 EA .ROUTE DIRECTED #1 Ref 0 EA Jonahton Washburn MD Aug 08, 2016 12:47
[2016-08-08 16:00] VITALS: BP 169/87; PULSE 72; RESP 18; TEMP 99.9; O2SAT 99
== END 2016-08-08 18:46 | disposition home or self-care (01) | DRG 482 ==
LOC: PHED 16:20 → PHEDA 18:23 → N06A 20:14
PROVIDERS: ADMIT Internal Medicine; ATTEND Internal Medicine
PROC: 0QSB04Z Reposition Right Lower Femur with Internal Fixation Device, Open Approach (ICD-10-PCS; principal; 2016-08-07 08:51)
PROC: 0QSBXZZ Reposition Right Lower Femur, External Approach (ICD-10-PCS; 2016-08-08)
DX: S72.461A Displaced supracondylar fracture with intracondylar extension of lower end of right femur, initial encounter for closed fracture (principal); E87.6 Hypokalemia; D72.829 Elevated white blood cell count, unspecified; Z88.5 Allergy status to narcotic agent; W17.89XA Other fall from one level to another, initial encounter; Y93.89 Activity, other specified; Y92.9 Unspecified place or not applicable; Y99.9 Unspecified external cause status
CPT/HCPCS: 27510; 71010; 72170; 73552; 73560; 73590; 76000; 80048; 85014; 85018; 85025; 85610; 85730; 86850; 86900; 86901; 94150; 94770; 96361; 96374; 96375; 99152; 99153; C1713; E0113; J0690; J1170; J1200; J1580; J1650; J1885; J2250; J2270; J2405; J2710; J3010; J3370; J7030; J7050; J7120; L1830

== ENCOUNTER 2016-08-21 16:33 | Emergency (ER) | payer SELFPAY ==
[~2016-08-21] VITALS: Ht 185.4 cm; Wt 81.5 kg
[~2016-08-21 16:33] MED LIST: HYDR-3366 PO; WALKER/ADULT/FO1 MIS; XARE10TA PO
[2016-08-21 16:38] VITALS: BP 155/98; PULSE 93; RESP 16; TEMP 99.1; O2SAT 99
--- NOTE | 2016-08-21 17:14 | PD ---
HPI Chief Complaint: Wound/Suture/Staple Re-Check Time Seen by Provider: 16:55 Travel History International Travel<30 days: No Contact w/Intl Traveler<30days: No Traveled to known affect area: No History of Present Illness HPI 35-year-old male presents to the emergency room for suture removal. 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 Patient dislocated his knee 2 weeks ago and had surgery by Dr. Yousif on August 07. He had ORIF. He was told to follow up on August [address] Yousif for checkup and to have sutures removed. Patient went to Dr. Yousif's office today thinking that he had an appointment but appointment was not made. The He can be seen is on August 28, in one week. Patient states he would like to have his haris out today. He denies any drainage. Keeps them open to air and clean. Denies any pain. PFSH Past Medical History Hx Anticoagulant Therapy: No Neurologic: Yes (Vertigo) ?: Not Social History Alcohol Use: No Tobacco Use: No Substance Use: No Allergies-Medications (Allergen,Severity, Reaction): Coded Allergies: Morphine (Verified Allergy, Severe, Itching, 08/21/16) Reported Meds & Prescriptions Reported Meds & Active Scripts Active Xarelto (Rivaroxaban) 10 Mg Tab 10 Mg PO DAILY [place] (Hydrocodone-Acetaminophen) 10-325 Mg Tab 1 Tab PO Q4H PRN Walker/Adult/Folding (Device) 1 Mis Mis 1 Ea .ROUTE DIRECTED Review of Systems Except as stated in HPI: all other systems reviewed are Neg Physical Exam Narrative GENERAL: Well-nourished, well-developed male in no acute distress. Afebrile. Ambulatory with a knee immobilizer. SKIN: Focused skin assessment warm/dry. There are for incisions on the lateral right knee and one incision on the medial knee. All wounds are appropriately closed and healed. No evidence of infection. No dehiscence. HEAD: Normocephalic. EYES: No scleral icterus. No injection or drainage. NECK: Supple, trachea midline. No JVD or lymphadenopathy. CARDIOVASCULAR: Regular rate and rhythm without murmurs, gallops, or rubs. RESPIRATORY: Breath sounds equal bilaterally. No accessory muscle use. PSYCHIATRIC: No delusional thought processes. No hallucinations. Data Data Last Documented VS Vital Signs Date Time Temp Pulse Resp B/P Pulse Ox O2 Delivery O2 Flow Rate FiO2 08/21/16 16:38 99.1 93 16 155/98 99 MDM Medical Decision Making Medical Screen Exam Complete: Yes Emergency Medical Condition: Yes Medical Record Reviewed: Yes Differential Diagnosis Wound infection versus suture removal versus abrasion Narrative Course 35 year-old male presents to the emergency room for suture removal. Patient had sutures placed 2 weeks ago after open reduction internal fixation done by Dr. Yousif. He was supposed to follow-up today with Dr. Yousif to have the sutures out and thought that he had appointment but he did not actually have an appointment. The next time he could be seen was 1 week from today. He denies any itching, drainage, redness. I spoke to my attending physician who agrees that is reasonable to remove the haris at this time. 1 staple from the medial right knee and a total of 31 [place] from the lateral leg were removed without difficulty. Wound was well approximated and stays together. It was redressed with a dry dressing and patient was placed back in the immobilizer. Told to continue physical therapy as prescribed and keep his appointment on the . He understands and agrees to plan. Diagnosis Primary Impression: Visit for suture removal Referrals: Alex Yousif MD Patient Instructions: General Instructions, Stitches Removal (ED) Additional Instructions: Rest and drink plenty of fluids. Keep wound clean and dry. Follow-up with a Dr. Yousif. Return to the emergency room for worsening symptoms. Disposition: 01 DISCHARGE HOME Condition: Stable [place] August 21, 2016 17:14
== END 2016-08-21 17:15 | disposition home or self-care (01) ==
LOC: PHEFT 16:33
DX: Z48.02 Encounter for removal of sutures (principal)
CPT/HCPCS: 99281